=== PATIENT | male | born 1955 | race Caucasian/White ===

== ENCOUNTER 2020-05-25 07:04 | Day surgery (SDC) | payer BC, SELFPAY ==
[2020-05-18 16:34] LABS: BASOPHILS # (AUTO) 0.1 X10'3 (0-0.2); BASOPHILS % (AUTO) 1.2 % (0-1); EOSINOPHILS # (AUTO) 0.2 X10'3 (0-0.9); EOSINOPHILS % (AUTO) 2.8 % (0-6); LYMPHOCYTES # (AUTO) 1.8 X10'3 (1.1-4.8); LYMPHOCYTES % (AUTO) 20.9 % (21-51); MEAN CORPUSCULAR HEMOGLOBIN 32.5 PG (27.0-31.0); MEAN CORPUSCULAR HGB CONC 34.2 g/dL (33.0-36.5); MEAN PLATELET VOLUME 8.2 FL (7.4-10.4); MONOCYTES # (AUTO) 0.6 X10'3 (0-0.9); MONOCYTES % (AUTO) 6.9 % (2-12); NEUTROPHILS # (AUTO) 5.8 X10'3 (1.8-7.7); NEUTROPHILS % (AUTO) 68.2 % (42-75); PRE OP HEMATOCRIT 40.1 % (42.0-52.0); PRE OP HEMOGLOBIN 13.7 g/dL (14.0-17.9); PRE OP PLATELET COUNT 256 X10'3 (140-440); RED BLOOD COUNT 4.22 X10'6 (4.70-6.10); RED CELL DISTRIBUTION WIDTH 13.5 % (11.5-14.5)
[2020-05-18 16:48] LABS: ALBUMIN 3.6 G/DL (3.4-5.0); ALBUMIN/GLOBULIN RATIO 0.9 (1.1-1.5); ALKALINE PHOSPHATASE 70 IU/L (46-116); BLOOD UREA NITROGEN 10 MG/DL (7-18); BUN/CREATININE RATIO 13.9 (5.4-32.0); CALCIUM 9.2 MG/DL (8.5-10.1); CHLORIDE 106 MMOL/L (99-107); CREATININE 0.72 MG/DL (0.60-1.10); PRE OP ALT 26 U/L (30-65); PRE OP ANION GAP 8 (8-16); PRE OP AST 17 U/L (10-37); PRE OP BILIRUB, TOTAL 0.3 MG/DL (0.0-1.0); PRE OP GLUCOSE 88 MG/DL (70-104); PRE OP POTASSIUM 4.1 MMOL/L (3.4-5.1); PRE OP SODIUM 144 MMOL/L (135-145); TOTAL CARBON DIOXIDE 30.5 MMOL/L (24-32); TOTAL PROTEIN 7.6 G/DL (6.4-8.2); eGFR > 90 ML/MIN
[~2020-05-25] VITALS: Ht 177.8 cm; Wt 78.8 kg
[2020-05-25] VITALS (14 sets, daily range): BP systolic 141–168; BP diastolic 75–104
[~2020-05-25 07:04] MED LIST: BUPIVAcaine/PF 2.5 mg/ml (0.25%) 30ml vial ONE; DOCUMENT DATE & TIME OF BETA-BLOCKER PO ONE; LIDOcaine 1% 30ml preserv. free vial ONE; METO-395 PO; ceFAZolin 2gm in dextrose, iso 50 ML IV ONE; famotidine 20mg tablet PO ONE; ringers solution, lacted 1,000 ML IV SCH
[2020-05-25] MEDS ORDERED: metoprolol succinate 25mg (24-HOUR) SR. Tablet PO SCH (08:00)
[2020-05-25] MEDS ORDERED: metoprolol succinate 25mg (24-HOUR) SR. Tablet PO ONE (08:15)
[2020-05-25] MEDS ORDERED: LIDOcaine 1% 30ml preserv. free vial ONE (08:50)
[2020-05-25] MEDS ORDERED: BUPIVAcaine/PF 2.5 mg/ml (0.25%) 30ml vial ONE (08:50)
[2020-05-25] MEDS ORDERED: fentaNYL/PF 50MCG/1 ML 2ML syringe ONE (09:04)
[2020-05-25] MEDS ORDERED: midazolam 2 mg/2 ml injection ONE (09:05)
[2020-05-25] MEDS ORDERED: morphine 2 MG/ML inj. syringe IV PRN (09:05)
[2020-05-25] MEDS ORDERED: meperidine/PF 25mg/ml syringe IV PRN ×3 (09:05)
[2020-05-25] MEDS ORDERED: morphine 4 MG/ML inj SYRINge IV PRN (09:05)
[2020-05-25] MEDS ORDERED: acetaminophen 1000 MG/100ml vial IV ONE (09:05)
[2020-05-25] MEDS ORDERED: ondansetron/PF 4mg/2ml inj IV PRN (09:05)
[2020-05-25] MEDS ORDERED: ringers solution, lacted 1,000 ML IV SCH (09:05)
[2020-05-25] MEDS ORDERED: proCHLORperazine 10 MG/2 ml inj IV PRN (09:05)
[2020-05-25] MEDS ORDERED: sevoflurane 250ml liquid IH ONE (09:05)
[2020-05-25] MEDS ORDERED: LIDOcaine 2% (20mg/ml) 5ml vial ONE (09:06)
[2020-05-25] MEDS ORDERED: rocuronium 10mg/ml inj IV ONE (09:06)
[2020-05-25] MEDS ORDERED: propofol inj 20 ML IV ONE (09:06)
[2020-05-25] MEDS ORDERED: glycopyrrolate 0.2mg/ml inj ONE (10:27)
[2020-05-25] MEDS ORDERED: neostigmine methylsulfate 1 MG/ML 10ml vial ONE (10:27)
[2020-05-25] MEDS ORDERED: ondansetron/PF 4mg/2ml inj ONE (10:27)
[2020-05-25] MEDS ORDERED: dexamethasone sod phosphate 4mg/ml inj. ONE (10:27)
--- NOTE | 2020-05-25 10:28 | NUR ---
Received from OR via [facility], accompanied by Anesthesiologist DR SHEIKH and report given by Anesthesiologist. PT DROWSY, ABDOMEN W/2 LAP SITES W/BANDAIDS CDI. Addendum: 05/25/20 at 1100 by Ruthy Vee RN Amended: Links added.
[2020-05-25] MEDS ORDERED: HYDROcodone/acetaminophen 5mg/325mg tablet PO PRN (10:40)
[2020-05-25] MEDS ORDERED: HYDROcodone/acetaminophen 10/325mg tab PO PRN (10:40)
[2020-05-26] MEDS ORDERED: metoprolol succinate 25mg (24-HOUR) SR. Tablet PO SCH (08:00)
== END 2020-05-25 12:53 | disposition home or self-care (01) ==
LOC: PAS 07:04
PROVIDERS: ATTEND Surgery
DX: K40.90 Unilateral inguinal hernia, without obstruction or gangrene, not specified as recurrent (principal); Z20.822 Contact with and (suspected) exposure to COVID-19; I10 Essential (primary) hypertension; Z79.899 Other long term (current) drug therapy; F17.210 Nicotine dependence, cigarettes, uncomplicated; Z72.89 Other problems related to lifestyle; Z98.890 Other specified postprocedural states; Z82.49 Family history of ischemic heart disease and other diseases of the circulatory system
CPT/HCPCS: 36415; 49650; 80053; 82948; 85025; 87635; 93005; C1781; J0131; J1100; J2001; J2175; J2250; J2405; J2704; J2710; J3010; J3490; S2900; A4215; A4618; J7120

== ENCOUNTER 2020-07-07 11:21 | Emergency (ER) | payer BC, SELFPAY ==
[~2020-07-07] VITALS: Ht 177.8 cm; Wt 76.4 kg
[~2020-07-07 11:21] MED LIST changes: -BUPIVAcaine/PF 2.5 mg/ml (0.25%) 30ml vial ONE; -DOCUMENT DATE & TIME OF BETA-BLOCKER PO ONE; -LIDOcaine 1% 30ml preserv. free vial ONE; -ceFAZolin 2gm in dextrose, iso 50 ML IV ONE; -famotidine 20mg tablet PO ONE; -ringers solution, lacted 1,000 ML IV SCH
[2020-07-07] MEDS ORDERED: diltiazem 5mg/ml 5ml inj. IV ONE (11:35)
[2020-07-07] MEDS ORDERED: magnesium 2GM in 50ml NS 50 ML IV ONE (11:35)
[2020-07-07 11:46] LABS: BASOPHILS % (AUTO) 0.4 % (0-1); EOSINOPHILS # (AUTO) 0.1 X10'3 (0-0.9); EOSINOPHILS % (AUTO) 1.3 % (0-6); HEMATOCRIT 41.8 % (42.0-52.0); LYMPHOCYTES # (AUTO) 1.5 X10'3 (1.1-4.8); LYMPHOCYTES % (AUTO) 17.2 % (21-51); MEAN CORPUSCULAR HEMOGLOBIN 31.7 PG (27.0-31.0); MEAN CORPUSCULAR HGB CONC 33.5 g/dL (33.0-36.5); MEAN CORPUSCULAR VOLUME 94.9 FL (78-98); MEAN PLATELET VOLUME 8.1 FL (7.4-10.4); MONOCYTES # (AUTO) 0.9 X10'3 (0-0.9); MONOCYTES % (AUTO) 9.8 % (2-12); NEUTROPHILS # (AUTO) 6.3 X10'3 (1.8-7.7); NEUTROPHILS % (AUTO) 71.3 % (42-75); PLATELET COUNT 227 X10'3 (140-440); RED BLOOD COUNT 4.41 X10'6 (4.70-6.10); RED CELL DISTRIBUTION WIDTH 13.6 % (11.5-14.5); WHITE BLOOD COUNT 8.9 X10'3 (4.5-11.0)
--- NOTE | 2020-07-07 11:55 | NUR ---
Pt spontaneously converted to NSR while at bedside.
[2020-07-07 12:02] LABS: ALANINE AMINOTRANSFERASE 26 U/L (12-78); ALBUMIN 3.6 G/DL (3.4-5.0); ALKALINE PHOSPHATASE 74 IU/L (46-116); ANION GAP 11 (8-16); ASPARTATE AMINO TRANSFERASE 21 U/L (10-37); BILIRUBIN,TOTAL 0.6 MG/DL (0.1-1.0); BLOOD UREA NITROGEN 12 MG/DL (7-18); BUN/CREATININE RATIO 14.8 (5.4-32.0); CALCIUM 8.7 MG/DL (8.5-10.1); CHLORIDE 105 MMOL/L (99-107); CREATININE 0.81 MG/DL (0.60-1.10); GLUCOSE 73 MG/DL (70-104); POTASSIUM 4.3 MMOL/L (3.5-5.1); SODIUM 140 MMOL/L (135-145); TOTAL CARBON DIOXIDE 24.5 MMOL/L (24-32); TOTAL PROTEIN 7.3 G/DL (6.4-8.2); eGFR > 90 ML/MIN
[2020-07-07 12:27] VITALS: BP 133/79
== END 2020-07-07 12:28 | disposition home or self-care (01) ==
LOC: ER 11:22
DX: I47.1 Supraventricular tachycardia (principal); Z72.89 Other problems related to lifestyle; Z79.899 Other long term (current) drug therapy
CPT/HCPCS: 36415; 80053; 83880; 84484; 85025; 93005; 96365; 99291; J3475

== ENCOUNTER 2020-08-04 09:05 | Day surgery (SDC) | payer BC, SELFPAY ==
[2020-08-03 10:45] LABS: BASOPHILS % (AUTO) 0.6 % (0-1); EOSINOPHILS # (AUTO) 0.1 X10'3 (0-0.9); EOSINOPHILS % (AUTO) 0.9 % (0-6); HEMATOCRIT 40.8 % (42.0-52.0); HEMOGLOBIN 13.8 g/dl (14.0-17.9); LYMPHOCYTES # (AUTO) 1.3 X10'3 (1.1-4.8); LYMPHOCYTES % (AUTO) 16.2 % (21-51); MEAN CORPUSCULAR HEMOGLOBIN 32.4 PG (27.0-31.0); MEAN CORPUSCULAR HGB CONC 33.7 g/dL (33.0-36.5); MEAN CORPUSCULAR VOLUME 96.1 FL (78-98); MEAN PLATELET VOLUME 8.2 FL (7.4-10.4); MONOCYTES # (AUTO) 0.7 X10'3 (0-0.9); MONOCYTES % (AUTO) 8.9 % (2-12); NEUTROPHILS # (AUTO) 5.9 X10'3 (1.8-7.7); NEUTROPHILS % (AUTO) 73.4 % (42-75); PLATELET COUNT 240 X10'3 (140-440); RED BLOOD COUNT 4.25 X10'6 (4.70-6.10); RED CELL DISTRIBUTION WIDTH 13.8 % (11.5-14.5); WHITE BLOOD COUNT 8.1 X10'3 (4.5-11.0)
[2020-08-03 10:48] LABS: ALBUMIN 3.9 G/DL (3.4-5.0); ANION GAP 5 (8-16); BLOOD UREA NITROGEN 13 MG/DL (7-18); CALCIUM 9.3 MG/DL (8.5-10.1); CHLORIDE 105 MMOL/L (99-107); CREATININE 0.65 MG/DL (0.60-1.10); GLUCOSE 94 MG/DL (70-104); POTASSIUM 4.5 MMOL/L (3.5-5.1); SODIUM 139 MMOL/L (135-145); TOTAL CARBON DIOXIDE 28.8 MMOL/L (24-32); eGFR > 90 ML/MIN
[2020-08-03 10:51] LABS: PARTIAL THROMBOPLASTIN TIME 29 SECONDS (22-32)
[2020-08-04] VITALS (12 sets, daily range): BP systolic 92–125; BP diastolic 43–83
[~2020-08-04] VITALS: Ht 177.8 cm; Wt 76.0 kg
[2020-08-04] MEDS ORDERED: nitroGLYCERIN-Tridil 50MG/D5W 250 ML IV ONE (09:44)
[2020-08-04] MEDS ORDERED: iohexol 350MG/ML 100ml bottle IV ONE (09:45)
[2020-08-04] MEDS ORDERED: verapamil 2.5 mg/ml inj IV ONE (09:45)
[2020-08-04] MEDS ORDERED: fentaNYL/PF 50MCG/1 ML 2ML syringe ONE (09:45)
[2020-08-04] MEDS ORDERED: LIDOcaine 1% (10mg/ml)w/preservative injection 20ml MDV ONE (09:45)
[2020-08-04] MEDS ORDERED: heparin 1,000unit/ml 10ml vial 10 ML ONE (09:45)
[2020-08-04] MEDS ORDERED: iohexol 350 MG/ML 50ML vial IV ONE ×2 (09:45→11:37)
[2020-08-04] MEDS ORDERED: midazolam 1 mg/ML 2ml injection ONE (09:45)
[2020-08-04] MEDS ORDERED: diphenhydrAMINE 25mg capsule PO ONE (09:55)
[2020-08-04] MEDS ORDERED: LORazepam 0.5 MG tablet PO ONE (09:55)
[2020-08-04] MEDS ORDERED: MULT-1085 PO (09:58)
[2020-08-04] MEDS ORDERED: ASPI-1265 PO (09:58)
[2020-08-04] MEDS ORDERED: UBID10CA4 PO (09:58)
[2020-08-04] MEDS ORDERED: NICO-669 BC (10:02)
[2020-08-04] MEDS ORDERED: acetylcysteine 200 MG/ml 4ml vial PO PRN (11:06)
[2020-08-04] MEDS ORDERED: sodium bicarbonate (8.4%) inj. 75 ML in dextrose 5% water 500ml 500 ML IV ONE (11:10)
[2020-08-04] MEDS ORDERED: normal saline 1000ml 1,000 ML IV SCH (12:30)
== END 2020-08-04 19:00 | disposition home or self-care (01) ==
LOC: SSTAY O 09:05
PROVIDERS: ATTEND Internal Medicine Cardiovascular Disease
DX: I25.10 Atherosclerotic heart disease of native coronary artery without angina pectoris (principal); R94.39 Abnormal result of other cardiovascular function study; I47.1 Supraventricular tachycardia; R06.02 Shortness of breath; Z72.0 Tobacco use; I51.7 Cardiomegaly; R55 Syncope and collapse; I36.1 Nonrheumatic tricuspid (valve) insufficiency
CPT/HCPCS: 36415; 76937; 80048; 85025; 85610; 85730; 93005; 93458; 99152; 99153; C1760; C1769; C1894; J1644; J2001; J2250; J3010; Q0163; Q9967; A4620; A6258; J3490

== ENCOUNTER 2024-05-14 06:07 | Day surgery (SDC) | payer MEDICARE ==
[2024-05-13 09:30] LABS: BASOPHILS % (AUTO) 0.1 % (0-1); EOSINOPHILS # (AUTO) 0.1 X10'3 (0-0.9); EOSINOPHILS % (AUTO) 1.4 % (0-6); HEMOGLOBIN 13.9 g/dl (14.0-17.9); LYMPHOCYTES # (AUTO) 1.5 X10'3 (1.1-4.8); LYMPHOCYTES % (AUTO) 17.3 % (21-51); MEAN CORPUSCULAR HEMOGLOBIN 32.3 PG (27.0-31.0); MEAN CORPUSCULAR HGB CONC 33.9 g/dL (33.0-36.5); MEAN CORPUSCULAR VOLUME 95.3 FL (78-98); MEAN PLATELET VOLUME 7.9 FL (7.4-10.4); MONOCYTES # (AUTO) 0.7 X10'3 (0-0.9); MONOCYTES % (AUTO) 8.8 % (2-12); NEUTROPHILS # (AUTO) 6.1 X10'3 (1.8-7.7); NEUTROPHILS % (AUTO) 72.4 % (42-75); PLATELET COUNT 201 X10'3 (140-440); WHITE BLOOD COUNT 8.4 X10'3 (4.5-11.0)
[2024-05-13 09:41] LABS: INR 1.1 INR; PROTHROMBIN TIME 11.5 SECONDS (9.0-12.0)
[2024-05-13 09:42] LABS: ALBUMIN 3.5 G/DL (3.4-5.0); ANION GAP 5 (8-16); BLOOD UREA NITROGEN 13 MG/DL (7-18); BUN/CREATININE RATIO 19.4 (10.0-20.0); CALCIUM 8.8 MG/DL (8.5-10.1); CHLORIDE 105 MMOL/L (99-107); CREATININE 0.67 MG/DL (0.60-1.10); GLUCOSE 99 MG/DL (70-104); POTASSIUM 4.3 MMOL/L (3.5-5.1); SODIUM 137 MMOL/L (135-145); TOTAL CARBON DIOXIDE 26.8 MMOL/L (24-32); eGFR > 90 ML/MIN
[2024-05-14] VITALS (30 sets, daily range): BP systolic 83–127; BP diastolic 49–82; PULSE 65–94; RESP 10–14; TEMP 98; O2SAT 98–100
[~2024-05-14] VITALS: Ht 180.3 cm; Wt 80.5 kg
[~2024-05-14 06:07] MED LIST changes: +ASPI-611 PO; -METO-395 PO; +ROSU20TA98 PO; +SOTA80TA PO
[2024-05-14] MEDS ORDERED: atropine 0.1mg/ml 10ml syringe IV ONE (06:25)
[2024-05-14] MEDS ORDERED: diphenhydrAMINE 25mg capsule PO ONE (06:25)
[2024-05-14] MEDS ORDERED: LORazepam 0.5 MG tablet PO ONE (06:25)
[2024-05-14] MEDS ORDERED: MULT-1085 PO (06:31)
[2024-05-14] MEDS: amiodarone 150mg/dext, iso-os 100 ML IV ONE (09:24)
[2024-05-14] MEDS: amiodarone/D5 360MG/200ML BAG 200 ML IV SCH (09:25)
[2024-05-14] MEDS: normal saline 1000ml 1,000 ML IV SCH (09:31)
[2024-05-14] MEDS: MIDAZolam 1mg/ml 10ml vial IV ONE (11:15)
[2024-05-14] MEDS: morphine 10mg/ml inj. IV ONE (11:15)
[2024-05-14] MEDS ORDERED: APIX5TAB3 PO (12:29)
[2024-05-14] MEDS ORDERED: WARF3TAB56 PO (12:59)
== END 2024-05-14 13:25 | disposition home or self-care (01) ==
LOC: SSTAY O 06:07
PROVIDERS: ATTEND Internal Medicine Cardiovascular Disease
DX: I48.19 Other persistent atrial fibrillation (principal); I48.92 Unspecified atrial flutter; I48.0 Paroxysmal atrial fibrillation; I25.10 Atherosclerotic heart disease of native coronary artery without angina pectoris; I49.5 Sick sinus syndrome; I73.9 Peripheral vascular disease, unspecified; I51.7 Cardiomegaly; I47.10 Supraventricular tachycardia, unspecified; I36.1 Nonrheumatic tricuspid (valve) insufficiency; F17.210 Nicotine dependence, cigarettes, uncomplicated; Z79.82 Long term (current) use of aspirin; Z79.899 Other long term (current) drug therapy; Z98.890 Other specified postprocedural states; Z82.3 Family history of stroke; Z82.49 Family history of ischemic heart disease and other diseases of the circulatory system
CPT/HCPCS: 36415; 80048; 85025; 85610; 92960; 93005; J0282; J2250; J2270; J7030; Z7610; J2274